=== PATIENT | male | born 1955 | race Caucasian/White ===

== ENCOUNTER 2018-01-25 05:45 | Observation (INO) | payer OTHER ==
--- NOTE | 2018-01-12 12:48 | NUR ---
PATIENT HERE TODAY WITH HIS SONAL FOR PREADMISSION APPOINTMENT. HE IS SCHEDULED FOR A LEFT TOTAL KNEE REPLACMENT ON 01/25/18. HE REPORTS HE WILL BE ATTENDING THE JOINT CLASS TONIGHT AT THE [facility] [place] AND WOULD LIKE PHYSICAL THERAPY SET UP WITH THE [facility] [place]. 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 THEY HAVE ONE STEP INTO THE HOME WITH A HAND RAIL ON THE LEFT SIDE. THERE ARE NO STEPS IN THE HOME. HE REPORTS HAVING A TUB/SHOWER COMBO AND WILL BE INSTALLING A HAND HELD SHOWER HEAD. HIS WILL BE THE ONE TO TRANSPORT HIM HOME WHEN DISCHARGED AND TO APPOINTMENTS. THIS INFORMATION WILL BE SENT TO DR ZULETA OFFICE AND PA PLANNING FOR FURTHER FOLLOW UP.
[~2018-01-25] VITALS: Ht 165.1 cm; Wt 85.3 kg
--- OUTSIDE RECORDS SUMMARY | ~2018-01-25 | XMS | Encounter Summary ---
Demographics + + + | Address | [address] | | | [place] [address] | + + + | Home Phone | | + + + | Preferred Language | Unknown | + + + | Marital Status | | + + + | Mormon Affiliation | Unknown | + + + | Race | Unknown | + + + | Ethnic Group | Unknown | + + + Author + + + | Author | [facility] | | | and [place] | + + + | Organization | [facility] | | | and [place] | + + + | Address | Unknown | + + + | Phone | Unavailable | + + + Support + + +---------+ + | Name | Relationship | Address | Phone | + + +---------+ + | Chato Ndiaye | ECON | Unknown | | + + +---------+ + Care Team Providers + +------+ + | Care Gluing Pressman Name | Role | Phone | + +------+ + | Julián Reza DO | PCP | | + +------+ + Reason for Visit + + + | Reason | Comments | + + + | Establish Care | Re-establish care | + + + | Pre-op Exam | Pre-Op for LEFT TKA | + + + Encounter Details +--------+---------+ + + + | Date | Type | Department | Care Team | Description | +--------+---------+ + + + | 01/05/ | Office | [facility] | Julián Reza | Primary | | 2018 | Visit | [facility] | E, DO [address] | osteoarthritis of | | | | [facility] | Seren[address] Lopez | left knee | | | | [address] [facility], | [place], [place] | | | | | [place] [address] | [address] | | | | | [phone] | [phone] | | | | | | | | +--------+---------+ + + + Social History + +-------+ +--------+------+ | Tobacco Use | Types | Packs/Day | Years | Date | | | | | Used | | + +-------+ +--------+------+ | Never Smoker | | | | | + +-------+ +--------+------+ + +---+---+---+ | Smokeless Tobacco: | | | | | Never Used | | | | + +---+---+---+ + + +---------+ + | Alcohol Use | Drinks/We | oz/Week | Comments | | | ek | | | + + +---------+ + | Yes | | | Rare | + + +---------+ + + + + | Sex Assigned at | Date Recorded | | | | + + + | Not on file | | + + + as of this encounter Last Filed Vital Signs + + + + | Vital Sign | Reading | Time Taken | + + + + | Blood Pressure | 130/72 | 01/05/20181600 PDT | + + + + | Pulse | 69 | 01/05/20181600 PDT | + + + + | Temperature | 37 C (98.6 F) | 01/05/20181600 PDT | + + + + | Respiratory Rate | 15 | 01/05/20181600 PDT | + + + + | Oxygen Saturation | 95% | 01/05/20181600 PDT | + + + + | Inhaled Oxygen | - | - | | Concentration | | | + + + + | Weight | 87.6 kg (193 lb 3.2 | 01/05/2018 1601 PDT | | | oz) | | + + + + | Height | 165.1 cm (5' 5") | 01/05/2018 1601 PDT | + + + + | Body Mass Index | 32.15 | 01/05/2018 1601 PDT | + + + + in this encounter Progress Notes Brittney Vasques CC [facility] [address] - 01/05/20181599 PDTEitanboubacar Rodriguez Zelda presents today with Chief Com plaint of: Re-establish care. Pre-Op for LEFT TKA Current medications verified with her at time of visit. Pt currently shows no s/s of distress, shortness of breath. Vital signs: BP 130/72 | Pulse 69 | Temp 37 C (98.6 F) (Oral) | Resp 15 | Ht 1.651 m (5' 5") | Wt 87.6 kg (193 lb 3.2 oz) | SpO2 95% | BMI 32.15 kg/m Labs Obtained per protocol: None. Verbal Report given to: DO. Brittney Cuevas [facility] Julián Reza DO - 01/05/20181599 PDTFormatting of this note may be different from t he original. Patient ID: Hector Ndiaye is a 62 y.o. year old male Chief Complaint: Chief Complaint Patient presents with [facility] Re-establish care Pre-op Exam Pre-Op for LEFT TKA Assessment and Plan; Primary osteoarthritis of left knee Subjective: HPI Hector is here for pre-op for Left TKA. Knee injury during hunting season, and has gotten progressively worse. Taking tylenol daily for pain. Surgery is 01/26/2018. Patient is wearing a knee brace on the left knee. Denies s leep apnea, chest pain. Does get SOB but managed with albuterol. No trouble with previous in tubation and extubation. He is starting Iron in a couple weeks. Recommended to take a vitamin C. Plan Cleared for anticipated surgery REVISED CARDIAC RISK INDEX SCORE = 0 EDG sinus rhythm at 73 bpm with no acute or chronic findings. Current Outpatient Prescriptions Medication Sig Dispense Refill acetaminophen (TYLENOL) 500 mg tablet Take 1,000 mg by mouth 2 times daily. albuterol (PROAIR HFA) 90 mcg/puff inhaler Inhale 2 puffs into the lungs every 6 hours as needed for Wheezing. Use as directed ascorbic acid (VITAMIN C) 500 mg tablet Take 500 mg by mouth Daily. aspirin 81 mg EC tablet Take 81 mg by mouth Daily. fluticasone (FLONASE) 50 mcg/nasal spray 2 sprays by Nasal route Daily. GLUCOSAMINE-CHONDROITIN PO Take by mouth as needed. ibuprofen (ADVIL, MOTRIN) 200 mg tablet Take 200 mg by mouth 3 times daily. montelukast (SINGULAIR) 10 mg tablet Take 10 mg by mouth nightly. Multiple Vitamins-Minerals (MULTIVITAMIN ADULT PO) Take by mouth Daily. [place]-3 Fatty Acids (FISH OIL) 1200 MG CAPS Take by mouth 3 times daily. omeprazole (PRILOSEC) 20 mg capsule Take 20 mg by mouth Daily. vitamin A 83211 units capsule Take 10,000 Units by mouth Daily. No current facility-administered medications for this visit. Patient Active Problem List Diagnosis SHOULDER PAIN, RIGHT Chronic kidney disease (CKD), stage III (moderate) Hyperlipidemia Hyperkalemia Primary osteoarthritis of left knee Family History Problem Relation Age of Onset Cancer Mother Bone Cancer Sister Cervical Past Surgical History: Procedure Laterality Date BICEPS TENDON REPAIR Right CHOLECYSTECTOMY COLONOSCOPY 04/2015 Next due [address] CARDIAC CALCIUM SCORE NO CONT 2014 RIGHT ROTATOR CUFF REPAIR 2014 Dr. Osorio Social History Social History Marital status: Spouse name: N/A Number of children: N/A Years of education: N/A Occupational History Not on file. Social History Main Topics Smoking status: Never Smoker Smokeless tobacco: Never Used Alcohol use Yes Comment: Rare Drug use: No Sexual activity: Not on file Other Topics Concern Not on file Social History Narrative No narrative on file Allergies Allergen Reactions Codeine Sulfate Other (See Comments) Head ache Meloxicam Unsure of reaction Review of Systems Constitutional: Negative. Negative for fatigue and fever. Respiratory: Negative for cough, chest tightness, shortness of breath and wheezing. Cardiovascular: Negative for chest pain and palpitations. Gastrointestinal: Negative for abdominal pain, nausea and vomiting. Musculoskeletal: Negative for gait problem and myalgias. L Knee Pain Neurological: Negative for dizziness, syncope and headaches. Psychiatric/Behavioral: The patient is not nervous/anxious. Objective: Vitals: BP 130/72 | Pulse 69 | Temp 37 C (98.6 F) (Oral) | Resp 15 | Ht 1.651 m (5' 5") | Wt 87.6 kg (193 lb 3.2 oz) | SpO2 95% | BMI 32.15 kg/m Physical Exam Constitutional: He is oriented to person, place, and time. He appears well-developed and we ll-nourished. HENT: Head: Normocephalic and atraumatic. Right Ear: External ear normal. Left Ear: External ear normal. Nose: Nose normal. Mouth/Throat: Oropharynx is clear and moist. Eyes: Pupils are equal, round, and reactive to light. EOM are normal. Cardiovascular: Normal rate, regular rhythm and normal heart sounds. Pulmonary/Chest: Effort normal and breath sounds normal. No respiratory distress. Abdominal: Soft. Bowel sounds are normal. Lymphadenopathy: He has no cervical adenopathy. Neurological: He is alert and oriented to person, place, and time. Skin: Skin is warm and dry. Psychiatric: He has a normal mood and affect. Dr. Julián Reza DO. 01/05/2018 17:21 Entered by Aleksey Hurtado, acting as scribe for Dr. Libia DO. The documentation recorded by the scribe accurately reflects the service I personally perfo [facility] and the decisions made by me. in this encounter Plan of Treatment Not on fileas of this encounter Visit Diagnoses + + | Diagnosis | + + | Primary osteoarthritis of left knee | + + | Primary localized osteoarthrosis, lower leg | + +
--- OUTSIDE RECORDS SUMMARY | ~2018-01-25 | XMS | Clinical Summary ---
Demographics + + + | Address | [address] | | | [place] [address] | + + + | Home Phone | | + + + | Preferred Language | Unknown | + + + | Marital Status | | + + + | Church Affiliation | Unknown | + + + | Race | Unknown | + + + | Ethnic Group | Unknown | + + + Author + + + | Author | [facility] | | | and [place] | + + + | Organization | [facility] | | | and [place] [...] Team Providers + +------+ + | Care Towel Rolling Machine Operator Name | Role | Phone | + +------+ + | Julián Reza DO | PP | | + +------+ + Allergies + + + +--------+ + | Active Allergy | Reactions | Severity | Noted | Comments | | | | | Date | | + + + +--------+ + | Codeine Sulfate | Other (See Comments) | | | Head ache | + + + +--------+ + | Meloxicam | | | | Unsure of reaction | + + + +--------+ + Current Medications + + +-------+---------+------+------+-------+ | Prescription | Sig. | Disp. | Refills | Star | End | Statu | | | | | | t | Date | s | | | | | | Date | | | + + +-------+---------+------+------+-------+ | omeprazole | Take 20 mg by mouth | | | 01/30 | | Activ | | (PRILOSEC) 20 mg | Daily. | | | 09/18 | | e | | capsule | | | | 12 | | | + + +-------+---------+------+------+-------+ | aspirin 81 mg EC | Take 81 mg by mouth | | | | | Activ | | tablet | Daily. | | | | | e | + + +-------+---------+------+------+-------+ | [place]-3 Fatty | Take by mouth 3 | | | | | Activ | | Acids (FISH OIL) | times daily. | | | | | e | | 1200 MG CAPS | | | | | | | + + +-------+---------+------+------+-------+ | fluticasone | 2 sprays by Nasal | | | | | Activ | | (FLONASE) 50 | route Daily. | | | | | e | | mcg/nasal spray | | | | | | | + + +-------+---------+------+------+-------+ | | Take by mouth as | | | | | Activ | | GLUCOSAMINE-CHONDROI | needed. | | | | | e | | TIN PO | | | | | | | + + +-------+---------+------+------+-------+ | ibuprofen (ADVIL, | Take 200 mg by mouth | | | | | Activ | | MOTRIN) 200 mg | 3 times daily. | | | | | e | | tablet | | | | | | | + + +-------+---------+------+------+-------+ | Multiple | Take by mouth | | | | | Activ | | Vitamins-Minerals | Daily. | | | | | e | | (MULTIVITAMIN ADULT | | | | | | | | PO) | | | | | | | + + +-------+---------+------+------+-------+ | albuterol (PROAIR | Inhale 2 puffs into | | | | | Activ | | HFA) 90 mcg/puff | the lungs every 6 | | | | | e | | inhaler | hours as needed for | | | | | | | | Wheezing. Use as | | | | | | | | directed | | | | | | + + +-------+---------+------+------+-------+ | montelukast | Take 10 mg by mouth | | | | | Activ | | (SINGULAIR) 10 mg | nightly. | | | | | e | | tablet | | | | | | | + + +-------+---------+------+------+-------+ | acetaminophen | Take 1,000 mg by | | | | | Activ | | (TYLENOL) 500 mg | mouth 2 times daily. | | | | | e | | tablet | | | | | | | + + +-------+---------+------+------+-------+ | ascorbic acid | Take 500 mg by mouth | | | | | Activ | | (VITAMIN C) 500 mg | Daily. | | | | | e | | tablet | | | | | | | + + +-------+---------+------+------+-------+ | vitamin A 94141 | Take 10,000 Units by | | | | | Activ | | units capsule | mouth Daily. | | | | | e | + + +-------+---------+------+------+-------+ Active Problems + + + | Problem | Noted Date | + + + | Primary osteoarthritis of left knee | 01/05/2018 | + + + | Chronic kidney disease (CKD), stage III (moderate) | 01/01/2018 | + + + | Hyperlipidemia | 01/01/2018 | + + + | Hyperkalemia | 01/01/2018 | + + + | SHOULDER PAIN, RIGHT | | + + + Encounters +--------+ + + + + | Date | Type | Specialty | Care Team | Description | +--------+ + + + + | 01/11/ | Telephone | | Julián Reza | Request For Medical | | 2018 | | | E, DO | Records | +--------+ + + + + | 01/06/ | Orders Only | | Julián Reza | Osteoarthritis, | | 2017 | | | E, DO | unspecified | | | | | | osteoarthritis type, | | | | | | unspecified site | | | | | | (Primary Dx) | +--------+ + + + + | 01/05/ | Office | | Julián Reza | Primary | | 2017 | Visit | | E, DO | osteoarthritis of | | | | | | left knee | +--------+ + + + + | 01/01/ | Abstract | | Brittney Vasques, CC | Chronic kidney | | 2017 | | | BASS SINGER | disease (CKD), stage | | | | | | III (moderate); | | | | | | Hyperlipidemia, | | | | | | unspecified | | | | | | hyperlipidemia type; | | | | | | Hyperkalemia | +--------+ + + + + | 12/29/ | Abstract | | Julián Reza | | | 2017 | | | DO Marylin | | +--------+ + + + + from Last 3 Months Immunizations + + + + | Name | Dates Previously Given | Next Due | + + + + | INFLUENZA PF | 03/20/2016 | | | QUAD(PED/ADOL/ADULT) | | | | ,PSKT or VIAL | | | + + + + | PNEUMOCOCCAL | 09/10/2017 | | | CONJUGATE 13-VALENT | | | | (PCV13) | | | + + + + | PNEUMOCOCCAL | 10/16/2014 | | | POLYSACCHARIDE | | | | 23-VALENT (PPSV23) | | | + + + + | TDAP, (ADOL/ADULT) | 09/10/2017 | | + + + + | ZOSTER, 1 DOSE | 03/22/2015 | | | (ADULT) | | | + + + + Family History + + +------+ + | Medical History | Relation | Name | Comments | + + +------+ + | Cancer | Mother | | Bone | + + +------+ + | Cancer | Sister | | Cervical | + + +------+ + + +------+ + + | Relation | Name | Status | Comments | + +------+ + + | Mother | | | | | | | (Age | | | | | 60's) | | + +------+ + + | Sister | | | | + +------+ + + Social History + +-------+ +--------+------+ [...] on file | | + + + Last Filed Vital Signs + + + [...] | 87.6 kg (193 lb 3.2 | 01/05/20181600 PDT | | | oz) | | + + + + | Height | 165.1 cm (5' 5") | 01/05/20181600 PDT | + + + + | Body Mass Index | 32.15 | 01/05/20181600 PDT | + + + + Plan of Treatment + + + + + | Health Maintenance | Due Date | Last Done | Comments | + + + + + | Hepatitis C | | | | | Screening | 4 | | | + + + + + | PRIMARY CARE | | | | | OUTREACH-LOW RISK | 4 | | | | EVERY 2 YEARS | | | | + + + + + | Vaccine: Zoster (2 | | 03/22/2015 | | | of 3) | 5 | | | + + + + + | Vaccine: Influenza | | 03/20/2016 | | | (#1) | 8 | | | + + + + + | Colorectal Cancer | | 04/02/2015, 04/01/2015 | | | Screening | 5 | | | | (Colonoscopy) | | | | + + + + + | Vaccine: | | 09/10/2017 | | | Dtap/Tdap/Td (2 - | 8 | | | | Td) | | | | + + + + + Procedures + +--------+ + + + | Procedure Name | Priori | Date/Time | Associated Diagnosis | Comments | | | ty | | | | + +--------+ + + + | LABS - EXTERNAL SCAN | | 01/21/2018 | | Results for this | | | | 0000 PDT | | procedure are in the | | | | | | results section. | + +--------+ + + + | LABS - EXTERNAL SCAN | | 01/18/2018 | | Results for this | | | | 0000 PDT | | procedure are in the | | | | | | results section. | + +--------+ + + + from Last 3 Months Results LABS - EXTERNAL SCAN (01/21/2018)Only the most recent of 2 results within the time period i s included. + + + | Narrative | Performed At | + + + | Ordered by an | | | unspecified provider. | | + + + from Last 3 Months Insurance +-------+--------+ +------+ + + | Payer | Benefi | Subscriber | Type | Phone | Address | | | t Plan | ID | | | | | | / | | | | | | | Group | | | | | +-------+--------+ +------+ + + | MODA | MODA | [id number] | PPO | [phone] [address] [address] | | | [employer] | | [phone] | [place] [address] | | | [place] | | | | | | | [place] | | | | | +-------+--------+ +------+ + + + +--------+ +--------+ + + | Guarantor Name | Accoun | Relation to | Date | Phone | Billing Address | | | t Type | Patient | of | | | | | | | | | | + +--------+ +--------+ + + | HECTOR NDIAYE | Person | Self [birth year] Home: | [address] | | | al/Fam | | [phone] [place] [address] | | | fatoumata | | [phone] | | + +--------+ +--------+ + +
--- OUTSIDE RECORDS SUMMARY | ~2018-01-25 | XMS | Encounter Summary ---
Demographics + + + | Address | [address] | | | [place] [address] | + + + | Home Phone | | + + + | Preferred Language | Unknown | + + + | Marital Status | | + + + | Baptist Affiliation | Unknown | + + + | Race | Unknown | + + + | Ethnic Group | Unknown | + + + Author + + + | Author | [facility] | | | and [place] | + + + | Organization | [facility] | | | and [place] | [...] Team Providers + +------+ + | Care Home Comfort Advisor Name | Role | Phone | + +------+ + | Julián Reza DO | PCP | | + +------+ + Encounter Details +--------+ + + + + | Date | Type | Department | Care Team | Description | +--------+ + + + + | 12/29/ | Abstract | [facility] | Julián Reza | | | 2017 | | [facility] | Marylin DO [address] | | | | | [address] | [place] | | | | | [address] [facility], | [place] | | | | | [place] [address] | [address] | | | | | [phone] | [phone] | | | | | | | | +--------+ + + + + Social History + +-------+ +--------+------+ | Tobacco Use | Types | Packs/Day | Years | Date | | | | | Used | | + +-------+ +--------+------+ | Never Assessed | | | | | + +-------+ +--------+------+ + + + | Sex Assigned at | Date Recorded | | | | + + + | Not on file | | + + + as of this encounter Plan of Treatment Not on fileas of this encounter Procedures + +--------+ + + + | Procedure Name | Priori | Date/Time | Associated Diagnosis | Comments | | | ty | | | | + +--------+ + + + | EXTERNAL LAB: PSA, | Routin | 09/04/2017 | | Results for this | | SCREEN | e | 0000 PDT | | procedure are in the | | | | | | results section. | + +--------+ + + + | EXTERNAL: | Routin | 04/02/2015 | | Results for this | | COLONOSCOPY | e | 0000 PST | | procedure are in the | | | | | | results section. | + +--------+ + + + in this encounter Results External Lab: PSA, Screen (09/04/2017) + +-------+ + + | Component | Value | Ref Range | Performed At | + +-------+ + + | PSA, External | 1.12 | | | + +-------+ + + + + | Specimen | + + | Blood | + + EXTERNAL: COLONOSCOPY (04/02/2015) + + + + + | Component | Value | Ref Range | Performed At | + + + + + | Colonoscopy | Report not found. | | | | Impression, External | Comment: Per | | | | | Libia's chart | | | | | note-[facility] | | | | | Medicine | | | + + + + + in this encounter Visit Diagnoses Not on filein this encounter"
--- OUTSIDE RECORDS SUMMARY | ~2018-01-25 | XMS | Encounter Summary ---
Demographics + + + | Address | [address] | | | [place] [address] | + + + | Home Phone | | + + + | Preferred Language | Unknown | + + + | Marital Status | | + + + | Rastafarian Affiliation | Unknown | + + + | Race | Unknown | + + + | Ethnic Group | Unknown | + + + Author + + + | Author | [facility] | | | and [place] | + + + | Organization | [facility] | | | and [place] | [...] Team Providers + +------+ + | Care Natural Remedy Consultant Name | Role | Phone | + +------+ + | Julián Reza DO | PCP | | + +------+ + Encounter Details +--------+ + + + + | Date | Type | Department | Care Team | Description | +--------+ + + + + | 12/29/ | Abstract | [facility] | Julián Reza | | | 2017 | | [facility] | Marylin DO [address] | | | | | [address] | [place] | | | | | [address] [facility], | [place] | | | | | [place] [address] | [address] | | | | | [phone] | [phone] | | | | | | | [...] Libia's chart | | | | | note-[facility] | | | | | Medicine | | | + + + + + in this encounter Visit Diagnoses Not on filein this encounter"
--- OUTSIDE RECORDS SUMMARY | ~2018-01-25 | XMS | Encounter Summary ---
Demographics + + + | Address | [address] | | | [place] [address] | + + + | Home Phone | | + + + | Preferred Language | Unknown | + + + | Marital Status | | + + + | Catholic Affiliation | Unknown | + + + | Race | Unknown | + + + | Ethnic Group | Unknown | + + + Author + + + | Author | [facility] | | | and [place] | + + + | Organization | [facility] | | | and [place] | [...] Team Providers + +------+ + | Care Liquor Runner Name | Role | Phone | + +------+ + | Julián Reza DO | PCP | | + +------+ + Encounter Details +--------+ + + + + | Date | Type | Department | Care Team | Description | +--------+ + + + + | 01/06/ | Orders Only | [facility] | Julián Reza | Osteoarthritis, | | 2018 | | [facility] | E, DO [address] | unspecified | | | | [address] | [place] | osteoarthritis type, | | | | [address] [place], | [place], [place] | unspecified site | | | | [place] [address] | [address] | (Primary Dx) | | | | [phone] | [phone] | | | | | | | [...] as of this encounter Plan of Treatment + +--------+ + + | Name | Priori | Associated Diagnoses | Order Schedule | | | ty | | | + +--------+ + + | CBC with Differential | Routin | Osteoarthritis, | 1 Occurrences | | | e | unspecified | starting 01/06/2018 | | | | osteoarthritis type, | until 01/06/2019 | | | | unspecified site | | + +--------+ + + | Comprehensive Metabolic Panel | Routin | Osteoarthritis, | 1 Occurrences | | | e | unspecified | starting 01/06/2018 | | | | osteoarthritis type, | until 01/06/2019 | | | | unspecified site | | + +--------+ + + | Hemoglobin A1C | Routin | Osteoarthritis, | 1 Occurrences | | | e | unspecified | starting 01/06/2018 | | | | osteoarthritis type, | until 01/06/2019 | | | | unspecified site | | + +--------+ + + as of this encounter Visit Diagnoses + + | Diagnosis | + + | Osteoarthritis, unspecified osteoarthritis type, unspecified site - Primary | + +"
--- OUTSIDE RECORDS SUMMARY | ~2018-01-25 | XMS | Encounter Summary ---
Demographics + + + | Address | [address] | | | [place] [address] | + + + | Home Phone | | + + + | Preferred Language | Unknown | + + + | Marital Status | | + + + | Yarsanism Affiliation | Unknown | + + + | Race | Unknown | + + + | Ethnic Group | Unknown | + + + Author + + + | Author | [facility] | | | and [place] | + + + | Organization | [facility] | | | and [place] [...] Team Providers + +------+ + | Care Restaurant Area Manager Name | Role | Phone | + +------+ + | Julián Reza DO | PCP | | + +------+ + Reason for Visit + + + | Reason | Comments | + + + | Request For Medical | | | Records | | + + + Encounter Details +--------+ + + + + | Date | Type | Department | Care Team | Description | +--------+ + + + + | 01/11/ | Telephone | [facility] | Julián Reza | Request For Medical | | 2018 | | [facility] | E, DO [address] | Records | | | | [facility] [address] | [place] | | | | | [facility] [facility], | [place], [place] | | | | | [place] [address] | [address] | | | | | [phone] | | | | | | | [...] on fileas of this encounter Visit Diagnoses Not on filein this encounter"
--- OUTSIDE RECORDS SUMMARY | ~2018-01-25 | XMS | Encounter Summary ---
Demographics + + + | Address | [address] | | | [place] [address] | + + + | Home Phone | | + + + | Preferred Language | Unknown | + + + | Marital Status | | + + + | Sabianist Affiliation | Unknown | + + + | Race | Unknown | + + + | Ethnic Group | Unknown | + + + Author + + + | Author | [facility] | | | and [place] | + + + | Organization | [facility] | | | and [place] [...] Team Providers + +------+ + | Care Strategic Manager Name | Role | Phone | + +------+ + | Julián Reza DO | PCP | | + +------+ + Encounter Details +--------+ + + + + | Date | Type | Department | Care Team | Description | +--------+ + + + + | 01/06/ | Orders Only | [facility] | Julián Reza | Osteoarthritis, | | 2018 | | [facility] | E, DO [address] | unspecified | | | | [address] | [place] | osteoarthritis type, | | | | [address], | [place], [place] | unspecified site | | | | [place] [address] | [address] | (Primary Dx) | | | | [phone] | [phone] | | | | | | | [...]
--- OUTSIDE RECORDS SUMMARY | ~2018-01-25 | XMS | Encounter Summary ---
Demographics + + + | Address | [address] | | | [place] [address] | + + + | Home Phone | | + + + | Preferred Language | Unknown | + + + | Marital Status | | + + + | Mormon Affiliation | Unknown | + + + | Race | Unknown | + + + | Ethnic Group | Unknown | + + + Author + + + | Author | [facility] | | | and [place] | + + + | Organization | [facility] | | | and [place] | [...] Team Providers + +------+ + | Care Cable Television Installer Name | Role | Phone | + [...] [place] | | | | | [address] [facility], | [place], [place] | | | | | [place] [address] | [address] | | | | | [phone] | [phone] | | | | | | | [...]
--- OUTSIDE RECORDS SUMMARY | ~2018-01-25 | XMS | Clinical Summary ---
Demographics + + + | Address | [address] | | | [place] [address] | + + + | Home Phone | | + + + | Preferred Language | Unknown | + + + | Marital Status | | + + + | Voodoo Affiliation | Unknown | + + + | Race | Unknown | + + + | Ethnic Group | Unknown | + + + Author + + + | Author | [facility] | | | and [place] | + + + | Organization | [facility] | | | and [place] [...] Team Providers + +------+ + | Care Lump Maker Name | Role | Phone | + [...] | e | + + +-------+---------+------+------+-------+ | Hampton-3 Fatty | Take by mouth 3 | [...] | + + +-------+---------+------+------+-------+ | vitamin A 61892 | Take 10,000 Units by | | [...] kidney | | 2017 | | | CARE MGR | disease (CKD), stage | | | [...] + + | MODA | MODA | [id number] | PPO | [phone] [address] [address] | | | OEBB | | | [address] | [place] [address] | | | CONNEX | | | [...] | | al/Fam | | 4 | [phone] | [place] [address] | | | fatoumata | | | 3533 | | + +--------+ +--------+ + +
--- OUTSIDE RECORDS SUMMARY | ~2018-01-25 | XMS | Encounter Summary ---
Demographics + + + | Address | [address] | | | [place] [address] | + + + | Home Phone | | + + + | Preferred Language | Unknown | + + + | Marital Status | | + + + | Taoist Affiliation | Unknown | + + + | Race | Unknown | + + + | Ethnic Group | Unknown | + + + Author + + + | Author | [facility] | | | and [place] | + + + | Organization | [facility] | | | and [place] [...] Team Providers + +------+ + | Care Supervisor Tank Cleaning Name | Role | Phone | + +------+ + | Julián Reza DO | PCP | | + +------+ + Encounter Details +--------+ + + + + | Date | Type | Department | Care Team | Description | +--------+ + + + + | 01/01/ | Abstract | [facility] | Brittney Vasques [facility] | Chronic kidney | | 2018 | | [facility] | TABLE TOP TILE SETTER | disease (CKD), stage | | | | [facility] [address] | | III (moderate); | | | | [facility] [facility], | | Hyperlipidemia, | | | | [place] [address] | | unspecified | | | | [phone] | | hyperlipidemia type; | | | | | | Hyperkalemia | +--------+ + + + + Social [...] | | + + +---------+ + | No | | | | + + +---------+ + + + + | Sex Assigned at | Date Recorded | | | | + + + | Not on file | | + + + as of this encounter Plan of Treatment Not on fileas of this encounter Visit Diagnoses + + | Diagnosis | + + | Chronic kidney disease (CKD), stage III (moderate) | + + | Chronic kidney disease, Stage III (moderate) | + + | Hyperlipidemia, unspecified hyperlipidemia type | + + | Hyperkalemia | + + | Hyperpotassemia | + +"
--- OUTSIDE RECORDS SUMMARY | ~2018-01-25 | XMS | Encounter Summary ---
Demographics + + + | Address | [address] | | | [place] [address] | + + + | Home Phone | | + + + | Preferred Language | Unknown | + + + | Marital Status | | + + + | Yazidism Affiliation | Unknown | + + + | Race | Unknown | + + + | Ethnic Group | Unknown | + + + Author + + + | Author | [facility] | | | and [place] | + + + | Organization | [facility] | | | and [place] [...] Team Providers + +------+ + | Care Senior Behavioral Scientist Name | Role | Phone | + +------+ + | Julián Reza DO | PCP | | + +------+ + Encounter Details +--------+ + + + + | Date | Type | Department | Care Team | Description | +--------+ + + + + | 01/01/ | Abstract | [facility] | Brittney [facility] | Chronic kidney | | 2018 | | [facility] | LABOR CREW SUPERVISOR | disease (CKD), stage | | | | [facility] [address] | | III (moderate); | | | | [facility] [facility], | | Hyperlipidemia, | | | | [place] [address] | | unspecified | | | | [phone] | | hyperlipidemia type; | | | [...]
--- OUTSIDE RECORDS SUMMARY | ~2018-01-25 | XMS | Encounter Summary ---
Demographics + + + | Address | [address] | | | [place] [address] | + + + | Home Phone | | + + + | Preferred Language | Unknown | + + + | Marital Status | | + + + | Nondenominational Affiliation | Unknown | + + + | Race | Unknown | + + + | Ethnic Group | Unknown | + + + Author + + + | Author | [facility] | | | and [place] | + + + | Organization | [facility] | | | and [place] [...] Team Providers + +------+ + | Care Muck Boss Name | Role | Phone | + [...] + | 01/05/ | Office | [facility] | Julián Reza | Primary | | 2018 | Visit | [facility] | E, DO [address] | osteoarthritis of | | | | [facility] [facility] | [place] | left knee | | | | [address] [facility], | [place], [place] | | | | | [place] [address] | [address] | | | | | [phone] | | | | | | | [...] this encounter Progress Notes Brittney Vasques CC [facility] - 01/05/20181599 PDTEitanboubacar Rodriguez Zelda presents today [...] Report given to: DO. Brittney Cuevas CC [facility] Julián Reza DO - 01/05/20181599 PDTFormatting of this note may be different from t he original. Patient ID: Hector Ndiaye is a 62 y.o. year old male Chief Complaint: Chief Complaint Patient presents with [facility] Re-establish care Pre-op Exam Pre-Op for LEFT [...] (MULTIVITAMIN ADULT PO) Take by mouth Daily. [place]-3 Fatty Acids (FISH OIL) 1200 MG CAPS Take by mouth 3 times daily. omeprazole (PRILOSEC) 20 mg capsule Take 20 mg by mouth Daily. vitamin A 94660 units capsule Take 10,000 Units by mouth [...] accurately reflects the service I personally perfo [facility] and the decisions made by me. in this encounter Plan of Treatment Not on fileas of this encounter Visit Diagnoses + + | Diagnosis | + + | Primary osteoarthritis of left knee | + + | Primary localized osteoarthrosis, lower leg | + +
[~2018-01-25 05:45] MED LIST: FISH OIL 1,0001 EACH PO; MONTELUKAST SOD10 MG PO; MULTIVITAMINS1 EAC7 PO; OMEPRAZOLE20 MG PO; VITAMIN C500 M1 PO
[2018-01-25] MEDS ORDERED: IRON325 M1 PO (06:03)
[2018-01-25] MEDS ORDERED: ASPIR 8181 MG PO (06:22)
[2018-01-25] MEDS ORDERED: EXCEDRIN EXTRA1 EAC1 PO (06:23)
[2018-01-25] MEDS ORDERED: ACETAMINOPHEN500 MG PO (07:52)
[2018-01-25] MEDS ORDERED: VENTOLIN HFA18 GM INH (07:53)
[2018-01-25] MEDS ORDERED: FLONASE ALLERG9.9 ML NAS (07:55)
[2018-01-25] MEDS ORDERED: VITAMIN A10000 UNIT PO (07:56)
--- NOTE | 2018-01-25 08:46 | NUR ---
01/25/18 0846 Rebecca Fontaine 0834 PT ARRIVED ASLEEP, RESP EVEN AND UNLABORED. 0841 PT WOKE TO VERBAL STIMULI AND AND DENIES PAIN AND NAUSEA. O2 MASK REMOVED. PT DROWSY.
--- NOTE | 2018-01-25 09:25 | NUR ---
PATIENT ARRIVED FROM SURGERY. REPORT FROM KEISHA MENESES. ASSESSMENT DONE. DRESSING CDI. SPINAL LEVEL L2. PATIENT AWAKE AND ORIENTED TO ALL. TOLERATING PO FLUID AND PUDDING. MEDICATION GIVEN (SEE MAR). VSS. PATIENT RESTING IN BED WITH DAUGHTER AT SIDE. NO FURTHER REQUESTS AT THIS TIME. CRYOCUFF AND SCDS IN PLACE. WALESKA HOSE ON. CALL LIGHT WITHIN REACH.
--- NOTE | 2018-01-25 10:54 | NUR ---
PT CALL LIGHT ON. PT REQUESTS BENEDRYL FOR ITCHING. GIVEN ORDERED. PT CHOOSING FOODS TO ORDER FOR LUNCH. NO ADDITIONAL REQUESTS OR COMPLAINTS. BED RAILS UP. CALL LIGHT WITHIN REACH.
--- NOTE | 2018-01-25 11:25 | NUR ---
VITAL SIGNS AND ASSESSMENT DUE. PATIENT RESTING IN BED. PATIENT FEELS "DROWSY" AND ITCHING IS RESOLVING. DRESSING CDI. CRYOCUFF IN PLACE. WALESKA HOSE IN PLACE. SCDS IN PLACE. SPINAL AT L5. CMS INTACT. NO FURTHER REQUESTS AT THIS TIME. CALL LIGHT WITHIN REACH.
--- NOTE | 2018-01-25 12:28 | NUR ---
VITAL SIGNS DUE. PATIENT EATING LUNCH, TOLERATING WELL. SPINAL RESOLVED. CMS INTACT. PATIENT REPORTS ITCHING HAS IMPROVED. DRESSING CDI, CYROCUFF ON. SCD'S IN PLACE. WALESKA HOSE ON. HEEL PROTECTORS ON. NO FURTHER REQUESTS AT THIS TIME. CALL LIGHT WITHIN REACH. AT BEDSIDE.
--- NOTE | 2018-01-25 13:05 | NUR ---
PT CALL LIGHT ON. THIS RN TO ROOM. PT R HAND COVERED WITH BLOOD. PT STATES HE WENT TO SCRATCH HIS LEG AND HIS HAND CAME BACK COVERED WITH BLOOD. PTS TASHA AREA ASSESSED. BLOOD NOTED AROUND SCROTUM. PT TURNED SIDE TO SIDE. NO BLOOD NOTED ON BACK OR BACKSIDE. QUARTER SIZE SPOT OF BLOOD NOTED ON SHEETS AT SPINAL SITE. NO BLOOD NOTED ON REST OF BACK OR PROXIMAL LEG. TASHA AREA CLEANED. NO ACTIVELY BLEEDING SITES NOTED. SHEETS CHANGED. PT ADIVISED THAT WE WILL CONTINUE TO MONITOR AND HE SHOULD CALL AGAIN IF HE NOTICES ADDITIONAL BLEEDING. CHARGE NURSE NOTIFIED. PT VERBALIZES UNDERSTANDING. CALL LIGHT WITHIN REACH. CMS INTACT. BED RAILSUP.
--- NOTE | 2018-01-25 13:20 | NUR ---
PATIENT TOLERATING PO FLUIDS. IVF DC'D AND PIV SALINE LOCKED PER ORDERS. SPINAL RESOLVED. PATIENT UP TO STAND. ATTEMPTED TO VOID AND UNABLE TO DO SO.
--- NOTE | 2018-01-25 13:28 | NUR ---
PATIENT DUE TO VOID. PATIENT UP TO STANDING POSITION USING FWW. PATIENT ABLE TO VOID A SMALL AMOUNT. BLADDER SCANNED PER PROTOCOL FOUND 947ML OF URINE. PLACED YATES CATHETER PER ORDER (SCAN >500ML). GAVE MEDICATIONS (SEE MAR). 1000 ML OUT WITH YATES INSERTION. PATIENT REPORTED MORE ITCHING, BENEDRYL TITRATED UP TO FULL DOSE (SEE MAR). PATIENT EDUCATED ON ELIMINATION AND YATES USE. PHYSICIAL THERAPY WILL ASSESS PATIENT IN ABOUT 1 HOUR. NO ADDITIONAL BLEEDING NOTED ON PATIENT'S BACKSIDE OR SHEETS. DRESSING CDI, CRYOCUFF ON, SCDS ON, WALESKA HOSE ON, HEEL PROTECTORS IN PLACE. NO FURTHER REQUESTS AT THIS TIME. CALL LIGHT WITH IN REACH.
--- NOTE | 2018-01-25 13:45 | NUR ---
PT IN BED, TRYING TO VISIT, BUT DROPS OFF TO SLEEP. PRESENT, PT STATED HE HAD NO PAIN. HE DID WANT TO KNOW WHEN P.T. WILL BE BY. HAD PRAYER WITH PT, WILL CONTINUE TO FOLLOW NEEDED
--- NOTE | 2018-01-25 14:27 | NUR ---
CALLED PHARMACY AND DC'D IV FLUIDS PER ORDER. PATIENT SALINE LOCKED.
--- NOTE | 2018-01-25 14:36 | NUR ---
Medications reconciled by pharmacist using pharmacy records and patient interview. Patient has his own albuterol inhaler that he will use when ordered
--- NOTE | 2018-01-25 14:51 | NUR ---
MEDICATIONS DUE. PATIENT RESTING IN BED. MEDICATIONS GIVEN (SEE MAR). DRESSING CDI, CRYOCUFF ON, WALESKA HOSE ON, SCD'S ON. CALL LIGHT WITHIN REACH. NO FURTHER REQUESTS AT THIS TIME.
--- NOTE | 2018-01-25 17:52 | NUR ---
ASSESSMENT DUE. PATIENT FINISHING DINNER. ASSESSMENT DONE. DENIES NAUSEA. PAIN RATED AT 1/10. REFUSED PAIN MEDICATION AT THIS TIME. PERIAREA ASSESSED NO FURTHER BLOOD NOTED. DRESSING CDI, SPINAL RESOLVED, CRYOCUFF IN PLACE. SCD'S IN PLACE, WALESKA HOSE IN PLACE. HEEL PROTECTORS IN PLACE. YATES DRAINING QUANTITY SUFFICIENT. PATIENT VISITING WITH AND FRIENDS. CALL LIGHT WITHIN REACH. NO FURTHER REQUESTS AT THIS TIME.
--- NOTE | 2018-01-25 18:45 | NUR ---
PT CALL LIGHT ON. PT REPORTS INCREASED PAIN NOW AT 3/10 BUT "IT JUST KEEPS CLIMBING." PT ALSO REPORTS "THE ITCHING IS BACK." SEE MAR FOR MEDICATION GIVEN. PT STATES "I JUST HAVE PRAISE FOR ALL OF YOUR." PT TALKING ON PHONE WITH FAMILY. O2 SATURATION AT 96% ON ROOM AIR. PT USING IS. BED RAILS UP. CALL LIGHT WITHIN REACH.
--- NOTE | 2018-01-25 18:48 | NUR ---
PATIENT ADMITTED POST LEFT TOTAL KNEE. PATIENT ALERT AND AWAKE. SPINAL RESOLVED. CMS INTACT. PATIENT UP TO STAND AND AMBULATED WITH PHYSICAL THERAPY. PATIENT UNABLE TO EMPTY BLADDER. BLADDER SCAN REVEALED >500 ML REMAINING AND YATES INSERTED PER ORDER. PATIENT REPORTED ITCHING MEDICATED WITH BENEDRYL X3 (SEE MAR). PATIENT REPORTING PAIN 0-3/10, MEDICATION GIVEN (SEE MAR). DRESSING CDI, CRYOCUFF ON, WALESKA HOSE ON, SCD'S ON, HEEL PROTECTORS ON. PATIENT USES CALL LIGHT APPROPRIATELY. PATIENT TOLERATING PO WELL, ADVANCED TO REGULAR DIET. DENIES NAUSEA.
--- NOTE | 2018-01-25 19:31 | NUR ---
IN ROOM FOR REPORT, PT IS AWAKE IN BED WITH HIS IN THE ROOM. HE DENIES PAIN AND DENIES FURTHER NEEDS AT THIS TIME. CALL LIGHT IS WITHIN REACH.
--- NOTE | 2018-01-25 21:54 | NUR ---
IN ROOM TO ADMINISTER MEDS AND ASSESS PT. LEFT KNEE DRESSING IS CDI, SCDS, CRYO CUFF, AES AND HEEL PROTECTORS ARE IN PLACE. PT DENIES PAIN AT THIS TIME AND STATES NO NUMBNESS OR TINGLING. PT DENIES NAUSEA AND ATE A GOOD DINNER. PT DENIES NEEDS AT THIS TIME. CALL LIGHT IS WITHIN REACH.
--- NOTE | 2018-01-25 23:08 | NUR ---
IN ROOM TO ADMINISTER ANCEF AND BENADRYL FOR ITCHING. PT REPORTS PAIN AT 3/10. 2 OXYCODONE WERE GIVEN TO KEEP ON TOP OF PAIN. PT DENIES FURTHER NEEDS AT THIS TIME. CALL LIGHT IS WITHIN REACH.
--- NOTE | 2018-01-26 00:51 | NUR ---
PT IS RESTING WITH EYES CLOSED, RESPIRATIONS ARE EVEN AND NONLABORED ON CONT PULSEOX WNL. CALL LIGHT IS WITHIN REACH.
--- NOTE | 2018-01-26 06:45 | NUR ---
GEE'Frankie YATES PT TOLERATED WELL.
--- NOTE | 2018-01-26 07:39 | NUR ---
ASSESSMENT AND MEDICATIONS DUE. PATIENT RESTING IN BED. ASSESSMENT DONE. PATIENT DENIES PAIN. PATIENT REPORTS ITCHING ON BACK AND SIDES. BACK WASHED WITH COOL CLOTH. PATIENT REPORTS IMPROVMENT. DRESSING CDI, CRYOCUFF IN PLACE. WALESKA HOSE ON. PATIENT UP TO CHAIR FOR BREAKFAST. AMBULATED SBA, FWW. SCDS AND HEEL PROTECTORS OFF PATIENT IS IN CHAIR WITH LEGS ELEVATED. MEDICATIONS GIVEN. PATIENT EATING BREAKFAST. LINEN CHANGED. CALL LIGHT WITHIN REACH. NO FURTHER REQUESTS AT THIS TIME.
--- NOTE | 2018-01-26 08:28 | OR ---
[facility] [address] [place] [place], [place] [address] Signed DATE OF OPERATION: 01/25/2018 SURGEON: Mary Osorio MD PREOPERATIVE DIAGNOSIS: Degenerative joint disease left knee. POSTOPERATIVE DIAGNOSIS: Degenerative joint disease left knee. PROCEDURE PERFORMED: Left total knee arthroplasty with computer navigation. LEAD PASTOR: Junie Underwood PA-C. Junie was present in critical positioning, retraction, and wound closure. ANESTHESIA: Spinal. BLOOD LOSS: Minimal. TOURNIQUET TIME: 60 minutes. IMPLANTS: [place] Triathlon size 6 femur, 5 tibia, 9 mm insert and 35 mm patella. BRIEF HISTORY: Hector is a 62-year-old gentleman with progressive worsening of end-stage arthritis. Risks and benefits of operative treatment discussed with him once he failed nonoperative treatment. DESCRIPTION OF PROCEDURE: Once the consent was obtained, he was taken to the operating room. After adequate anesthesia, he was placed on operating table. A hip bump was placed and a well-padded proximal thigh tourniquet was placed. The leg was then prepped and draped in a standard sterile fashion. The leg was exsanguinated using Esmarch bandage. Tourniquet inflated Electronically Signed By: MARY OSORIO MD 01/26/18 0828 PATIENT NAME: HECTOR MARIN OPERATIVE REPORT DATE OF : 53 REPORT #: [id number] PHYSICIAN: MARY OSORIO MD PCP: AYSHA JONES DO REPORT IS CONFIDENTIAL AND NOT TO BE RELEASED WITHOUT AUTHORIZATION [facility] [address] [place], [place] [address] Signed to 250 mmHg. Standard anterior-posterior curved incision was taken through skin and subcutaneous tissue. Median parapatellar arthrotomy was performed. The infrapatellar fat pad was excised and MCL was elevated of a sleeve around the posterior medial corner. The navigation guide was pinned to the distal femur and the femur was registered with the computer. The distal femoral cutting guide was then pinned in anatomic alignment. The distal femoral cut was made. The distal femur was sized to a 6, and 6 AP cutting block was pinned in line with epicondylar axis and the anterior, posterior, and chamfer cuts were made. The osteophytes were removed as we went. The attention was then turned to the proximal tibia. The ACL was transected. The PCL was found to be intact. The menisci were removed at this point. The navigation guide was pinned to the proximal tibia and the tibia was registered with the computer. The cutting block was then pinned in alignment and set to take 2 mm off the most involved medial side. The bone cut was made with care taken to protect the patellar tendon and MCL. The bone was removed as were meniscal remnants. Posterior osteophytes removed off the femur and posterior release was performed. Flexion-extension gaps were sized, found to be symmetric at 9 mm. The trials were then positioned, knee was taken through range of motion and found to be stable. The distal femoral drill holes were drilled. The patella was cut sized and drilled for a 35 mm patella. The tibia was then finished using the keel punch. All bone surfaces were pulse lavaged and packed with dry Ray-Davide. The cement was mixed and reached proper consistency, was placed all implants and bone surfaces. The tibia was impacted in position first and all excess cement was removed. The polyethylene was snapped into position and the femur was inserted. The excess was removed once again. The knee was extended and nicely loaded. The patella was clamped and any remaining cement was removed. The cement was allowed to harden. Once it hardened sufficiently, the knee was flexed and the remaining overflow was removed using osteotomes. The knee was pulse lavaged at intervals throughout the procedure. A total of 3 L antibiotic irrigation was used. The periarticular soft tissues were injected with a total 100 mL ropivacaine Toradol mixture. The arthrotomy was then closed using #1 Stratafix, 0 Stratafix for the subcutaneous tissue, and torsten for the skin. Wound was dressed with Mepilex Ag dressing, ABD and Minh wrap. He tolerated the procedure well. All sponge, needle, and instrument counts were correct. Mary Osorio MD BA/MODL /[id number] Electronically Signed By: MARY OSORIO MD 01/26/18 0828 PATIENT NAME: HECTOR MARIN OPERATIVE REPORT DATE OF : 53 REPORT #: [id number] PHYSICIAN: MARY OSORIO MD PCP: AYSHA JONES DO REPORT IS CONFIDENTIAL AND NOT TO BE RELEASED WITHOUT AUTHORIZATION [address] [address] Signed Copies: ~ Electronically Signed By: MARY OSORIO MD 01/26/18 0828 PATIENT NAME: HECTOR MARIN OPERATIVE REPORT DATE OF : 53 REPORT #: [id number] PHYSICIAN: MARY OSORIO MD PCP: AYSHA JONES DO REPORT IS CONFIDENTIAL AND NOT TO BE RELEASED WITHOUT AUTHORIZATION
--- NOTE | 2018-01-26 09:44 | NUR ---
PATIENT UP WITH PHYSICAL THERAPY. RETURNED TO BED. PATIENT REPORTS URINATING "A SMALL AMOUNT". PATIENT CONSUMING PO FLUIDS. PATIENT REPORTS 2/10 PAIN. REFUSES NEED FOR PAIN MEDICATION. PATIENT REQUESTED PAIN MEDICATION PRIOR TO 1400 PHYSICAL THERAPY SESSION. CALL LIGHT WITHIN REACH. NO FURTHER REQUESTS AT THIS TIME.
--- NOTE | 2018-01-26 10:35 | NUR ---
CHECKED IN ON PATIENT. PATIENT VISITING WITH FRIEND. PATIENT REPORTED 125 ML URINE OUTPUT. WILL CONTINUE TO MONITOR PATIENT'S VOIDING. PATIENT IN BED WITH CRYOCUFF, SCD'S, WALESKA HOSE, AND HEEL PROTECTORS ON. CALL LIGHT WITHIN REACH. NO FURTHER REQUESTS AT THIS TIME.
--- NOTE | 2018-01-26 12:36 | NUR ---
ASSESSMENT DUE. PATIENT REQUESTED PAIN MEDICATION FOR 4/10 PAIN AND IN ANTICIPATION OF PHYSICAL THERAPY. ASSESSMENT DONE. DRESSING CDI, CRYOCUFF ON, WALESKA HOSE ON, SCD'S ON, HEEL PROTECTORS ON. MEDICATION GIVEN (SEE MAR). PATIENT VOIDED 550 ML SO FAR THIS SHIFT WITHOUT ISSUE. PULSE OXIMETER DISCONTINUED, PATIENT SAT 98% ON ROOM AIR. PATIENT REPORTED ITCHING IS "MOSTLY" RESOLVED. PATIENT WILL CALL IF ITCHING INCREASES. PATIENT IN BED VISITING WITH FRIEND. CALL LIGHT WITHIN REACH. NO FURTHER REQUESTS AT THIS TIME.
--- NOTE | 2018-01-26 13:39 | NUR ---
URINE SPECIMEN TO BE COLLECTED. MEDICATIONS DUE. PATIENT AMBULATED TO VOID. SPECIMEN COLLECTED AND SENT TO LAB. SINGLE STAYER OPERATOR PAULO BLOOD SPECIMEN. MEDICATION GIVEN (SEE MAR). PATIENT REPORTED PAIN 07/11. DRESSING CDI, CRYOCUFF ON, SCDS ON, WALESKA HOSE ON, HEEL PROTECTORS ON. PATIENT IN BED WATCHING TV. CALL LIGHT WITHIN REACH. NO FURTHER REQUESTS AT THIS TIME.
--- NOTE | 2018-01-26 14:41 | NUR ---
PHYSICAL THERAPY NOTED BLOOD ON SONYA WRAP AFTER AMBULATION. ASSESSMENT DONE. ABD PAD AND MEDIPLEX 25% SATURATED. CMS INTACT. MD CALLED. MD VERBAL ORDER TO REINFORCE DRESSING WITH ADDITIONAL ABD PADS ON EACH SIDE AND WRAP WITH SONYA WRAP.
--- NOTE | 2018-01-26 14:53 | NUR ---
PER MD ORDER REINFORCED DRESSING WITH 2 ADDITIONAL ABD PADS. NEW SONYA WRAP APPLIED. CRYOCUFF IN PLACE, SCDS ON, WALESKA HOSE ON, HEEL PROTECTORS ON. PATIENT RESTING IN BED WATCHING TV. CALL LIGHT WITHIN REACH. NO FURTHER REQUESTS AT THIS TIME.
--- NOTE | 2018-01-26 14:59 | NUR ---
MEDICATION DUE. PATIENT WATCHING TV IN BED. MEDICATION GIVEN (SEE MAR). PATIENT AMBULATED TO BATHROOM SBA, FWW. PATIENT IN BED. CRYOCUFF ON, SCDS IN PLACE, WALESKA HOSE ON, HEEL PROTECTORS ON. CALL LIGHT WITHIN REACH. NO FURTHER REQUESTS AT THIS TIME.
--- NOTE | 2018-01-26 16:19 | NUR ---
PATIENT IN BED WATCHING TV. CALL LIGHT IN REACH. NO FURTHER NEEDS AT THIS TIME.
--- NOTE | 2018-01-26 16:46 | NUR ---
ASSESSMENT DUE. PATIENT RESTING WITH EYES CLOSED. EASILY AROUSED TO VOICE. ASSESSMENT DONE. DRESSING CDI, NO SHADOWING NOTED. CRYOCUFF ON, SCDS ON, WALESKA HOSE ON, HEEL PROTECTORS ON. CMS INTACT. PATIENT REPORTED PAIN OF 4/10. MEDICATION GIVEN (SEE MAR). PATIENT AMBULATED TO BATHROOM. SBA, FWW. PATIENT RESTING WATCHING TV. CALL LIGHT WITHIN REACH. NO FURTHER REQUESTS AT THIS TIME.
--- NOTE | 2018-01-26 17:53 | NUR ---
PATIENT SITTING IN BED WATCHING TV, BEDISDE. CRYO FILLED. CALL LIGHT IN REACH. NO FURTHER NEEDS AT THIS TIME.
--- NOTE | 2018-01-26 18:14 | NUR ---
PATIENT HERE 1 DAY POST OP LEFT TOTAL KNEE. VOIDING QUANTITY SUFFICENT. PATIENT REPORTING PAIN, MEDICATED WITH OXY X3. INCREASED PAIN THIS EVENING NORCO ADDED SCHEDULED TYLENOL DC'D. AMBULATES SBA, FWW. DRESSING REINFORCED AFTER PHYSICAL THERAPY, CDI. CRYOCUFF, SCDS, [place] HOSE, AND HEEL PROTECTORS ON. SERUM SODIUM LOW, AWARE. UA PENDING RESULTS. USES CALL LIGHT APPROPRIATELY.
--- NOTE | 2018-01-26 18:52 | NUR ---
PATIENT REPORTED PAIN OF 5/10. MD NOTIFIED. ORDER ENTERED FOR DIANNE, SCHEDULED TYLENOL DC'D. PAIN MEDICATION GIVEN (SEE MAR). PATIENT WATCHING TV IN BED WITH AT BEDSIDE. NO FURTHER REQUESTS AT THIS TIME. CALL LIGHT WITHIN REACH.
--- NOTE | 2018-01-26 19:25 | NUR ---
PT RESTING SUPINE IN BED WATCHING TV. REPORT RECEIVED FROM DAYSHIFT RN. CALL LIGHT AND H20 IN REACH AND FAMILY AT BEDSIDE. NO NEEDS VOICED AT THIS TIME.
--- NOTE | 2018-01-26 20:50 | NUR ---
PT RESTING SUPINE IN BED, REPORTS 5/10 PAIN TO LEFT KNEE. ASSESSMENT COMPLETED AND PT GIVEN PRN PO OPIODS FOR REPORTS OF PAIN. PT WAS UP TO RESTROOM WITH SBA AND FWW. PT TOLORATED AMBULATION WELL WITH SLOW BUT STEADY GAIT. CALL LIGHT AND FRESH ICE WATER IN REACH. SCD'S,POLAR ICE AND AND HEEL PROTECTORS IN PLACE. NO FURTHER NEEDS VOICED.
--- NOTE | 2018-01-27 00:18 | NUR ---
PT RESTING IN BED, EYES CLOSED AND PT APPEARS TO BE SLEEPING COMFORTABLY. SCD'S CRYO CUFF AND HEEL PROOTECTORS IN PLACE. CALL LIGHT AND H20 IN REACH.
--- NOTE | 2018-01-27 01:09 | NUR ---
pt reports 3/10 pain that is preventing him from sleeping. PRN opioids administered per pt request. call light and h20 in reach. pt denies further needs at this time. scd's, cryo cuff and heel protectors in place. dsg cdi to left knee and cms intact distally.
--- NOTE | 2018-01-27 03:05 | NUR ---
Pt resting in bed eyes closed and rr even and unlabored. pt appears to be sleeping comfortably. pt assessment completed. IV toradol administered.
--- NOTE | 2018-01-27 04:46 | NUR ---
IN TO [facility] CALL LIGHT PT REPORTS BREATKTHROUGH PAIN OF 3/10 SO PO NORCO ADMINISTERED PER PT REQUEST. CALL LIGHT AND H20 IN REACH. NO FURTHER NEEDS VOICED.
--- NOTE | 2018-01-27 05:11 | NUR ---
PT APPEARED TO HAVE SLEPT WELL OTHER THAN THE TIMES HE HAS WOKEN UP WITH BREATKTHROUGH PAIN. PAIN HAS BEEN CONTROLLED WITH PRN PO OPIOIDS AND SCHEDULED IV TORADOL. PT IS SBA WITH FWW AND AMBULATES WITH SLOW BUT STEADY GAIT. REINFORCED DSG TO LEFT KNEE HAS REMAINED CDI THIS SHIFT AND PT HAS GOOD CMS DISTAL TO LEFT KNEE. PT HAS TOLORATED SCD'S, CRYOCUFF, HEEL PROTECTORS AND ANTIEMBOLIC STOCKINGS WELL. VS'S HAVE BEEN STABLE AND PT HAS BEEN VOIDING CLEAR YELLOW QS URINE. SALINE LOCK IV REMAINS PATENT TO R [place].
--- NOTE | 2018-01-27 07:49 | NUR ---
PT APPEARS TO BE DOING WELL, PAIN MANAGED AND P.T. GOING WELL. HAD GOOD VISIT, PT REQUESTED PRAYER. WILL FOLLOW NEEDED
--- NOTE | 2018-01-27 08:01 | NUR ---
PATIENT SITTING UP IN BED WATCHING TV. WASHCLOTH GIVEN FOR FACE. CALL LIGHT IN REACH. NO FURTHER NEEDS AT THIS TIME.
--- NOTE | 2018-01-27 08:16 | NUR ---
CHANGE OF SHIFT REPORT: RECIEVED BEDSIDE REPORT FROM RAYN VALDES. PATIENT RESTING COMFORTABLY IN BED WITH AT BEDSIDE. PATIENT REQUESTED THAT OXYCODONE BE BROUGHT WITH MORNING MEDICATIONS. WHITE BOARD UPDATED. POSSESSIONS AT BEDTIME. PLAN OF CARE WAS DISCUSSED. 0818: ROUNDED ON PATIENT FOR MORNING MEDICATIONS. PATIENT RESTING COMFORTABLY IN BED, EATING BREAKFAST.IV APPEARED PATENT WHEN FLUSHED, HOWEVER AFTER IV WAS FLUSHED AFTER TORADOL ADMINISTRATION IT WAS NOTED THAT THE IV BEGAN TO LEAK. PLAN TO UPDATE MD ABOUT LEAKING IV.
[2018-01-27] MEDS ORDERED: TAMSULOSIN HCL0.4 MG PO (09:05)
[2018-01-27] MEDS ORDERED: HYDROCODON-ACE1 EA11 PO (09:06)
[2018-01-27] MEDS ORDERED: GABAPENTIN600 MG PO (09:06)
[2018-01-27] MEDS ORDERED: OXYCODONE HCL5 MG PO (09:06)
[2018-01-27] MEDS ORDERED: XARELTO10 MG PO (09:06)
[2018-01-27] MEDS ORDERED: MIRALAX17 GM PO (09:07)
--- NOTE | 2018-01-27 09:25 | NUR ---
PATIENT UP TO BATHROOM, INDEPENDENT. PATIENT CURRENTLY BACK TO TO BED WATCHING TV. FRESHWATER GIVEN. CALL LIGHT IN REACH. NO FURTHER NEEDS AT THIS TIME.
--- NOTE | 2018-01-27 12:29 | NUR ---
ROUNDED ON PATIENT, RESTING COMFORTABLY IN BED. REPORTED FEELING WARM, TEMP WAS TAKEN, 98.7. WILL CONTINUE TO MONITOR. CALL LIGHT WITHIN REACH.
--- NOTE | 2018-01-27 13:35 | NUR ---
PATIENT IN BED WATCHING TV. CRYO FILLED. CALL LIGHT IN REACH. NO FURTHER NEEDS AT THIS TIME.
--- NOTE | 2018-01-27 14:32 | NUR ---
PREPARING FOR DC. PT'S SHOULD BE BY SOON, AND HE IS EXCITED TO GO. NO QUESTIONS, POSITIVE EXPERIENCE. EXTENDED A BLESSING, WILL FOLLOW NEEDED
--- NOTE | 2018-01-27 15:43 | NUR ---
ROUNDED ON PATIENT FOR AFTERNOON ASSESSMENT. PATIENT RESTING COMFORTABLY IN BED, WITH POSSESSIONS AT BEDSIDE. CALL LIGHT WITHIN REACH. COMPLAINED OF PAIN, NORCO GIVEN ALONG WITH AFTERNOON MEDICATIONS. DISCUSSED DISCHARGE PLANS, EXPRESSED UNDERSTANDING. NO COMPLAINTS AT THIS TIME.
--- NOTE | 2018-01-28 07:41 | NUR ---
FAXED CHART NOTES INCLUDING FACE SHEET, ORDER, OP NOTE, PROG NOTES, PT AND OT EVALS AND NOTES, AND DC PACKET TO [facility].
--- NOTE | 2018-01-28 08:00 | NUR ---
RECIEVED FAX CONFIRMATION OF INFO SENT TO [facility].
== END 2018-01-27 16:35 | disposition home or self-care (01) ==
LOC: DSVR 05:45 → DS 05:45 → MS 05:45 → EDSTATUS 09:00 → MS 01-27 16:35
PROVIDERS: ADMIT Specialist
PROC: 8E0YXBZ Computer Assisted Procedure of Lower Extremity (ICD-10-PCS; 2018-01-25)
PROC: 3E0T3BZ Introduction of Anesthetic Agent into Peripheral Nerves and Plexi, Percutaneous Approach (ICD-10-PCS; 2018-01-25)
PROC: 3E0T33Z Introduction of Anti-inflammatory into Peripheral Nerves and Plexi, Percutaneous Approach (ICD-10-PCS; 2018-01-25)
PROC: 0SRD0J9 Replacement of Left Knee Joint with Synthetic Substitute, Cemented, Open Approach (ICD-10-PCS; principal; 2018-01-25 06:45)
DX: M17.12 Unilateral primary osteoarthritis, left knee (principal); G89.18 Other acute postprocedural pain; E87.1 Hypo-osmolality and hyponatremia; K21.9 Gastro-esophageal reflux disease without esophagitis; J45.20 Mild intermittent asthma, uncomplicated; Z57.31 Occupational exposure to environmental tobacco smoke; Z88.5 Allergy status to narcotic agent; Z91.09 Other allergy status, other than to drugs and biological substances; Z79.82 Long term (current) use of aspirin; Z79.51 Long term (current) use of inhaled steroids; Z79.899 Other long term (current) drug therapy
CPT/HCPCS: 01402; 36415; 51798; 64447; 64450; 76942; 80048; 83930; 83935; 85025; 94762; 96374; 96375; 96376; 97110; 97116; 97161; 97165; C1713; C1776; G0378; G8978; G8979; J0690; J1100; J1200; J1885; J2250; J2274; J2704; J2795; J3010; J7120

== ENCOUNTER 2023-01-06 12:46 | Day surgery (SDC) | payer MEDICARE, OTHER | END 2023-01-06 14:42 | disposition home or self-care (01) | LOC: DS 12:46 | PROC: 0DB98ZX Excision of Duodenum, Via Natural or Artificial Opening Endoscopic, Diagnostic (ICD-10-PCS; principal; 2023-01-06) | PROC: 0DB68ZX Excision of Stomach, Via Natural or Artificial Opening Endoscopic, Diagnostic (ICD-10-PCS; 2023-01-06) | DX: K21.00 Gastro-esophageal reflux disease with esophagitis, without bleeding (principal); K43.2 Incisional hernia without obstruction or gangrene; Z96.659 Presence of unspecified artificial knee joint; Z88.5 Allergy status to narcotic agent; K44.9 Diaphragmatic hernia without obstruction or gangrene; K29.70 Gastritis, unspecified, without bleeding ==